=== PATIENT | male | born 1960 | race Caucasian/White ===

== ENCOUNTER 2017-12-05 14:45 | Emergency (ER) | payer OTHER ==
[~2017-12-05] VITALS: Ht 175.3 cm; Wt 111.1 kg
[2017-12-05 15:01] VITALS: Ht 175.3 cm; Wt 111.1 kg
[2017-12-05 15:28] VITALS: BP 149/92
== END 2017-12-05 15:28 | disposition home or self-care (01) ==
LOC: ED 14:45
DX: G89.29 Other chronic pain (principal); M54.9 Dorsalgia, unspecified; F11.20 Opioid dependence, uncomplicated